=== PATIENT | female | born 1940 | race Caucasian/White ===

== ENCOUNTER → 2016-12-24 | Day surgery (SDC) | payer OTHER ==
[~2016-12-24] VITALS: Ht 154.9 cm; Wt 67.1 kg
[~2016-12-24] MED LIST: PRILOSEC20 M1 PO
--- NOTE | ~2016-12-24 | O ---
[place], [place] OPERATIVE NOTE NAME: TONY REGAN [facility] #: [id number] UNIT #: [id number] ROOM: DOCTOR: MARCELLA YU MD BIRTHDATE: [birth year] DOS: 12/24/2016 PREOPERATIVE DIAGNOSIS: Cataract, right eye. POSTOPERATIVE DIAGNOSIS: Cataract, right eye. OPERATION: Extracapsular cataract extraction by phacoemulsification with posterior chamber intraocular lens implantation, right eye. ANESTHESIA: Monitored standby. OPERATIVE FINDINGS AND PROCEDURE: 2% Xylocaine topical anesthetic gel was applied to the eye in the preop area. A time out procedure was performed verifying correct patient, correct site and corrects lens with Teressa Yu M.D. The operating microscope was swung into position and the lid speculum was inserted. Using a Lakeisha paracentesis blade, a paracentesis was made through clear cornea. Viscoelastic was used to fill the anterior chamber. Using a metal keratome a 2.4 mm self-sealing clear corneal cataract incision was made temporally at the limbus. Using a pre-bent 25 gauge cystotome needle, a standard continuous curvilinear capsulorrhexis was performed. The anterior capsule was removed with forceps. The lens nucleus was hydrodissected and phacoemulsified in the posterior chamber. Cortical material was removed with the irrigation aspiration hand piece and the posterior capsule was then polished with a curet under irrigation. The posterior chamber and capsular bag were filled with viscoelastic. A posterior chamber intraocular lens manufactured by: [employer], Model #[id number], and 17.5 diopters, right eye in strength were then inserted into the posterior chamber and within the capsular bag using the lens cartridge and injector system. Viscoelastic was removed using the irrigation aspiration handpiece. The anterior chamber was filled with balanced salt solution through the paracentesis. Both the paracentesis site and cataract incisions were hydrated with BSS and verified to be water-tight and self-sealing. Cefuroxime 1 mg/0.1 mL was injected into the anterior chamber through the paracentesis site. The incision checked to be water-tight using a Weck-Renu sponge. The integrity of the cataract wound and ocular tension were checked. Lid speculum and drapes were removed. The patient was transferred from the operating room to the recovery room in satisfactory condition. [place], [place] OPERATIVE NOTE NAME: TONY REGAN UNIT #: [id number] ROOM: DOCTOR: AIMEE MARK,MARCELLA BIRTHDATE: [birth year] MARCELLA YU MD CM:OPRECORD:OPERATIVE NOTE 1226 1723 MARCELLA YU MD 12/24/16 1722 interface
[2016-12-24 10:51] VITALS: BP 195/80
[2016-12-24 12:23] VITALS: BP 120/92
[2016-12-24 12:35] VITALS: BP 97/57
[2016-12-24 12:50] VITALS: BP 96/55
== END | disposition home or self-care (01) ==
LOC: SDC 12-19 09:30
DX: H26.9 Unspecified cataract (principal); Z85.9 Personal history of malignant neoplasm, unspecified; Z98.890 Other specified postprocedural states

== ENCOUNTER 2019-05-06 19:46 | Emergency (ER) | payer OTHER ==
[~2019-05-06] VITALS: Ht 157.4 cm; Wt 63.5 kg
== END 2019-05-06 22:02 | disposition home or self-care (01) ==
LOC: ED 19:46
DX: S62.317A Displaced fracture of base of fifth metacarpal bone, left hand, initial encounter for closed fracture (principal); S01.512A Laceration without foreign body of oral cavity, initial encounter; R07.89 Other chest pain; Z79.899 Other long term (current) drug therapy; Z90.49 Acquired absence of other specified parts of digestive tract; W01.0XXA Fall on same level from slipping, tripping and stumbling without subsequent striking against object, initial encounter; Y93.89 Activity, other specified; Y92.096 Garden or yard of other non-institutional residence as the place of occurrence of the external cause; Y99.8 Other external cause status

== ENCOUNTER → 2019-05-11 | Outpatient (CLI) | payer OTHER | END | disposition home or self-care (01) | LOC: ORTHO 00:07 | DX: E55.9 Vitamin D deficiency, unspecified (principal) ==

== ENCOUNTER → 2019-06-08 | Outpatient (CLI) | payer OTHER | END | disposition home or self-care (01) | LOC: RAD 01:57 | DX: S62.347D Nondisplaced fracture of base of fifth metacarpal bone, left hand, subsequent encounter for fracture with routine healing (principal); M85.842 Other specified disorders of bone density and structure, left hand; M79.89 Other specified soft tissue disorders; X58.XXXD Exposure to other specified factors, subsequent encounter ==

== ENCOUNTER → 2019-07-06 | Outpatient (CLI) | payer OTHER | END | disposition home or self-care (01) | LOC: ORTHO 01:29 | DX: S62.347D Nondisplaced fracture of base of fifth metacarpal bone, left hand, subsequent encounter for fracture with routine healing (principal); M19.042 Primary osteoarthritis, left hand; X58.XXXD Exposure to other specified factors, subsequent encounter ==

== ENCOUNTER 2024-06-07 08:00 | Emergency (ER) | payer OTHER ==
[~2024-06-07] VITALS: Ht 154.9 cm; Wt 62.6 kg
[2024-06-07] MEDS ORDERED: Doxycycline Hyclate 100 MG CAP PO ONE (08:40)
[2024-06-07] MEDS ORDERED: Bacitracin Zinc 14 GM TUBE T ONE (08:50)
== END 2024-06-07 08:36 | disposition home or self-care (01) ==
LOC: ED 08:00
DX: S70.362A Insect bite (nonvenomous), left thigh, initial encounter (principal); S70.352A Superficial foreign body, left thigh, initial encounter; E78.00 Pure hypercholesterolemia, unspecified; Z79.2 Long term (current) use of antibiotics; Z90.49 Acquired absence of other specified parts of digestive tract; Z90.13 Acquired absence of bilateral breasts and nipples; Z23 Encounter for immunization; W57.XXXA Bitten or stung by nonvenomous insect and other nonvenomous arthropods, initial encounter; Y93.89 Activity, other specified; Y92.89 Other specified places as the place of occurrence of the external cause; Y99.8 Other external cause status